=== PATIENT | female | born 1995 | race Two or more races ===

== ENCOUNTER 2024-10-17 14:00 | Inpatient (IN) | payer OTHER ==
[~2024-10-17] VITALS: Ht 152.4 cm; Wt 69.4 kg
[2024-10-27 05:25] VITALS: BP 122/89
[2024-10-27] MEDS ORDERED: PRENATAL TABLE1 EAC1 PO (05:57)
[2024-10-27] MEDS ORDERED: RINGERS SOLUTION,LACTATED 1,000 ML IV SCH ×2 (06:00→12:15)
[2024-10-27 07:28] VITALS: BP 127/87
[2024-10-27 08:19] LABS: BASO % 0.6 % (0.1-1.2); EOS # 0.10 (0.04-0.54); EOS % 0.9 % (0.7-7.0); LYMPH # 1.98 (1.18-3.74); LYMPH % 17.2 % (19.3-53.1); MEAN PLATELET VOLUME 10.90 fl (9.4-12.4); MONO # 0.64 (0.24-0.82); MONO % 5.5 % (4.7-12.5); NEUT # 8.65 (1.56-6.13); NEUT % 74.9 % (34.0-71.1); RED CELL DISTRIBUTION WIDTH 14.7 % (11.6-14.4)
[2024-10-27 08:36] LABS: INR 0.95
[2024-10-27 08:51] LABS: ALT/SGPT 16.0 U/L (12-78); AST/SGOT 19.0 U/L (15-37); BILIRUBIN TOTAL 0.27 mg/dL (0.3-1.2); BUN CREA RATIO 14.0 (7.0-25.0); CREATININE SERUM 0.73 mg/dL (0.55-1.02); GFR 96.37; GLOBULINA 3.6 G/DL (2.4-3.5); GLUCOSE FASTING 80.0 mg/dL (65-100); OSMOLALITY SERUM 277.0 MOSM/KG (275-295)
[2024-10-27 09:00] VITALS: BP 131/86
[2024-10-27] MEDS ORDERED: OXYTOCIN 500 ML IV ONE (09:00)
[2024-10-27] MEDS ORDERED: MORPHINE SULFATE 4 MG/ML VIAL IV PRN (09:00)
[2024-10-27] MEDS ORDERED: CITRIC ACID/SODIUM CITRATE 30 ML BLIST.PACK PO SCH (11:30)
[2024-10-27] MEDS ORDERED: CEFAZOLIN SODIUM 1,000 MG VIAL IV SCH (11:30)
[2024-10-27] MEDS ORDERED: OXYTOCIN 1,000 ML IV ONE (12:15)
[2024-10-27] MEDS ORDERED: ERYTHROMYCIN BASE OPHT 1GM EACH TUBE OP ONE (12:15)
[2024-10-27] MEDS ORDERED: MORPHINE SULFATE 4 MG/ML CARTRIDGE IV PRN (12:15)
[2024-10-27] MEDS ORDERED: OXYTOCIN 10 UNITS/ML VIAL IV ONE (12:15)
[2024-10-27 15:15] VITALS: BP 146/92
[2024-10-27] MEDS ORDERED: GABAPENTIN 300 MG CAPSULE PO SCH (17:00)
[2024-10-27] MEDS ORDERED: SIMETHICONE 125 MG CAPSULE PO SCH (17:00)
[2024-10-27] MEDS ORDERED: ONDANSETRON HCL 2 MG/ML VIAL IV SCH (18:00)
[2024-10-27] MEDS ORDERED: ACETAMINOPHEN 500 MG GEL..CAP PO SCH (18:00)
[2024-10-27] MEDS ORDERED: KETOROLAC TROMETHAMINE 30 MG VIAL IV SCH (18:00)
[2024-10-28] VITALS: BP 103/69
[2024-10-28 04:00] VITALS: BP 120/81
[2024-10-28 07:03] LABS: BASO % 0.2 % (0.1-1.2); EOS # 0.02 (0.04-0.54); EOS % 0.1 % (0.7-7.0); LYMPH # 1.48 (1.18-3.74); LYMPH % 11.1 % (19.3-53.1); MEAN PLATELET VOLUME 10.60 fl (9.4-12.4); MONO # 0.60 (0.24-0.82); MONO % 4.5 % (4.7-12.5); NEUT # 11.16 (1.56-6.13); NEUT % 83.6 % (34.0-71.1); RED CELL DISTRIBUTION WIDTH 15.1 % (11.6-14.4)
[2024-10-28 07:59] VITALS: BP 116/82
[2024-10-28] MEDS ORDERED: OxyCODONE HCL 5 MG TABLET (ROXICODONE) PO PRN (08:00)
[2024-10-28] MEDS ORDERED: KETOROLAC TROMETHAMINE 10 MG TABLET PO SCH (08:00)
[2024-10-28] MEDS ORDERED: DOCUSATE SODIUM 100MG CAP PO SCH (09:00)
[2024-10-28 15:54] VITALS: BP 126/83
[2024-10-29] VITALS: BP 121/77
[2024-10-29 08:08] VITALS: BP 124/87
[2024-10-29 13:00] VITALS: BP 118/74
[2024-10-29 16:02] VITALS: BP 127/86
[2024-10-30 01:29] VITALS: BP 129/83
[2024-10-30 08:18] VITALS: BP 121/83
== END 2024-10-30 13:40 | disposition home or self-care (01) | DRG 788 ==
LOC: LDR 10-27 05:47 → OB/GYN 10-27 05:47 → LDR 10-27 07:09 → OB/GYN 10-27 13:14
PROVIDERS: Obstetrics & Gynecology; ADMIT Obstetrics & Gynecology; ATTEND Obstetrics & Gynecology
PROC: 4A1HXCZ Monitoring of Products of Conception, Cardiac Rate, External Approach (ICD-10-PCS; 2024-10-27)
PROC: 10D00Z1 Extraction of Products of Conception, Low, Open Approach (ICD-10-PCS; principal; 2024-10-27 11:00)
DX: O82 Encounter for cesarean delivery without indication (principal); O62.1 Secondary uterine inertia; Z3A.40 40 weeks gestation of pregnancy; Z37.0 Single live birth